=== PATIENT | female | born 1940 | race Asian ===

== ENCOUNTER 2016-09-05 07:25 | Emergency (ER) | payer OTHER ==
--- NOTE | ~2016-09-05 | CT114 ---
[facility]. [facility] A Service of [facility] RADIOLOGY TEXT RESULTS PATIENT: ROSA MARIA GUERRERO LOCATION: SED : 40 UNIT #: [id number] AGE: [address]: Marcelo Casillas DO SEX: F ORDER DR: [id number] [address] [id number] E MR#: [id number] Acc #: [id number] NAME: ROSA MARIA GUERRERO : 1940 SEX: F STUDY DATE/TIME: 09/05/2016 9:10 UNIT: SED ROOM: STUDY DESCRIPTION: CT Soft Tissue Neck W Cont Attending Physician: (Res) Marcelo Casillas Ordering Physician: (Res) Marcelo Casillas Primary Care Physician: Gus Moss M.D. MEDICAL IMAGING REPORT This report is preliminary unless electronic signature is present. EXAM CT and neck with contrast. INDICATIONS Sensation of something being stuck in throat since last night. TECHNIQUE CT of the neck was performed following the administration of IV contrast. Coronal and sagittal reformatted images were obtained. This CT exam was performed with one or more of the following radiation dose reduction techniques: automatic exposure control, adjustment of mA and/or kV according to patient size, and iterative reconstruction. COMPARISON There are no comparison studies available. FINDINGS Visualized portions of the brain are unremarkable. The nasopharynx is unremarkable. The oropharynx is unremarkable. The hypopharynx is unremarkable. The laryngeal structures are unremarkable. There is no prevertebral soft tissue swelling. There is no evidence for abscess. There is no evidence for any foreign body. The major salivary glands are unremarkable. There is no evidence for lymphadenopathy. The visualized lung apices demonstrate some emphysema and some scarring/atelectasis. The visualized paranasal sinuses are unremarkable. The bone windows demonstrate cervical spine degenerative changes. IMPRESSION 1. There is no evidence for foreign body. 2. There is no evidence for any abscess. There is no prevertebral soft tissue swelling. There is no evidence of any peritonsillar abscess. [facility]. [facility] A Service of [facility] RADIOLOGY TEXT RESULTS PATIENT: ROSA MARIA GUERRERO LOCATION: SED : 40 UNIT #: [id number] AGE: [address]: Marcelo Casillas DO SEX: F ORDER DR: Dictated by... Ronald White M.D. THIS IS AN ELECTRONICALLY VERIFIED REPORT Ronald White M.D. at 09/06/2016 3:47 PM SAY/shirley TD: 09/05/2016 20:19 JOB #: [id number] MEDICAL IMAGING REPORT Page 1 of 1
[~2016-09-05 07:25] MED LIST: BACTRIM DS TABL1 TA1 PO; CARAFATE1 G PO; FAMOTIDINE PO; MULTIVITAMIN1 UDCAP PO; PRINIVIL40 MG PO; PROTONIX PO; SIMVASTATIN80 MG PO; ZOFRAN ODT4 MG PO; ZOFRAN PO
[2016-09-05] MEDS ORDERED: PRINIVIL40 MG (07:35)
[2016-09-05 08:17] LABS: BASOPHIL% 0.3 % (0-2.5); EOSINOPHIL# 0.9 X10e3 (0-0.7); EOSINOPHIL% 10.8 % (0.0-7.0); HEMATOCRIT 39.9 % (35.0-45.0); HEMOGLOBIN 13.5 gm/dL (12.0-16.0); MEAN CELL VOLUME 90.6 FL (83-96); MEAN CORPUSCULAR HEMOGLOBIN 30.7 PG (28-34); MEAN CORPUSCULAR HGB CONC 33.9 g/dL (30-36); MONOCYTE# 0.5 X10e3 (0-1.0); MONOCYTE% 6.2 % (3.0-12.0); NEUTROPHIL# 4.7 X10e3 (1.5-7.1); NEUTROPHIL% 57.7 % (40-75); PLATELET COUNT 253 X10e3 (140-420); RED CELL DISTRIBUTION WIDTH 13.3 % (11.0-15.5); WHITE BLOOD COUNT 8.1 X10e3 (4.0-10.5)
[2016-09-05 08:20] LABS: DIFF IND NO
[2016-09-05 08:35] LABS: ALBUMIN SERUM 4.1 g/dL (3.5-5.0); BILIRUBIN, DIRECT 0.1 mg/dL (0.0-0.2); BILIRUBIN,INDIRECT 0.1 mg/dL (0.0-0.9); BILIRUBIN,TOTAL 0.2 mg/dL (0.2-2.0); BUN/CREATININE RATIO 28.75; CALCIUM SERUM 9.1 mg/dL (8.4-10.2); CREATININE SERUM 0.8 mg/dL (0.6-1.4); GLOM FILT RATE Estimated 71.7 mL/min (>60); POTASSIUM 4.7 mmol/L (3.5-5.1); PROTEIN TOTAL SERUM 7.3 g/dL (6.0-8.3)
== END 2016-09-05 10:08 | disposition home or self-care (01) ==
LOC: SED 07:25
PROVIDERS: Emergency Medicine
DX: J02.9 Acute pharyngitis, unspecified (principal); I10 Essential (primary) hypertension; K21.9 Gastro-esophageal reflux disease without esophagitis
CPT/HCPCS: 36415; 70491; 80048; 80076; 85025; 87651; 99284; Q9967